=== PATIENT | female | born 1990 | race Caucasian/White ===

== ENCOUNTER 2016-07-17 20:20 | Inpatient (IN) | payer MEDICAID ==
[~2016-07-17] VITALS: Ht 142.2 cm; Wt 92.7 kg
[~2016-07-17 20:20] MED LIST: LACTATED RINGER'S 1,000 ML IV PRN; PREN-39 PO
[2016-07-17 20:41] VITALS: Ht 142.2 cm; Wt 92.7 kg
[2016-07-17 20:42] VITALS: BP 136/95; PULSE 80; RESP 18
--- NOTE | 2016-07-17 21:55 | PN ---
Date/Time of Note Date/Time of Note DATE: 07/17/16 TIME: 21:48 OB Subjective Subjective Subjective 26 yo P5105 @ 38 wks has been leaking on her underwear all day -good FM, some vaginal bleeding, mild ctx - h/o prior c/d x 2, x 3 OB Objective Objective Objective Abdomen- gravid,n/t SVE- 2/60/-3 FHT- Cat I [place]- irreg q 3 min Nitrazine neg, ROM+ neg, VIDHI 22 Abdomen: WNL Cervical Dilatation: 2cm Effacement: 50% Station: -3 Membranes: Intact Accelerations: Accelerations Present Decelerations: No Decelerations Varibility: Moderate Contractions on Admission: < 5 Minutes Apart Intensity: Mild OB Assessment/Plan Other Assessment: 26 yo P5105 @ 38 wks, r/o SROM, r/o labor - not SROM'd - patient does have ctx - will do BPP (FHT became less reactive) and recheck in 2 hrs ADWOA WHITE MD Jul 17, 2016 21:55
--- NOTE | 2016-07-17 21:58 | RADRPT ---
PROCEDURE: Ultrasound examination of . CLINICAL INDICATION: , now for evaluation of amnionic fluid index. TECHNIQUE: Ultrasound examination for evaluation of amnionic fluid index. COMPARISON: None. FINDINGS: VIDHI is 22.5 cm. heart motion is detected at a rate of 136 beats per minute. Placenta is posterior grade II. presentation is cephalic. IMPRESSION: VIDHI of 22.5 cm. RPTAT: UU Physician Douglas Date Time Electronically viewed and signed by Physician Douglas on 07/17/2016 21:57 RS/
--- NOTE | 2016-07-17 22:51 | RADRPT ---
PROCEDURE: US biophysical profile. CLINICAL INDICATION: Contractions. well-being. TECHNIQUE: Multiple sonographic images of the uterus were obtained. The images were revi ewed on a PACS workstation. COMPARISON: 07/17/2016. FINDINGS: There is a single live intrauterine gestation. heart rate is 120 beats per minute. The position is cephalic. The placenta is fundal, grade II. The VIDHI is 24.9 cm (normal: 5 - 25 cm). Breathing Movement: 2 Gross Body Movement: 2 Tone: 2 Qualitative Amniotic Fluid Volume: 2 TOTAL: 8 IMPRESSION: 1. Single viable intrauterine gestation. 2. Biophysical profile = 02/17. 3. VIDHI = 24.9 cm, which is upper limits of normal. RPTAT: HFN .Saurabh iCd MD, MD Date Time Electronically viewed and signed by .Saurabh Cid MD, MD on 07/17/2016 22:50 .N/
[2016-07-17] MEDS ORDERED: BUTORPHANOL 2 MG INJ IV PRN ×2 (23:00)
[2016-07-17] MEDS ORDERED: ACETAMINOPHEN/CODEINE #3 TAB PO PRN (23:00)
[2016-07-17] MEDS ORDERED: MISOPROSTOL 200 MCG TAB PR PRN (23:00)
[2016-07-17] MEDS ORDERED: IBUPROFEN 600 MG TAB PO PRN (23:00)
[2016-07-17] MEDS ORDERED: OXYTOCIN 30 UNITS/LR 500 ML IV PRN (23:00)
[2016-07-17] MEDS ORDERED: METHYLERGONOVINE 0.2 MG INJ IM PRN (23:00)
[2016-07-17] MEDS ORDERED: LIDOCAINE 1% (MPF) 30 ML INJ INJ PRN (23:00)
[2016-07-17] MEDS ORDERED: CARBOPROST 250 MCG INJ IM PRN (23:00)
[2016-07-17] MEDS ORDERED: OXYTOCIN 30 UNITS/LR 500 ML IV SCH (23:00)
[2016-07-18] MEDS ORDERED: AMPICILLIN 2 GM/NS (PMX) 100 ML IV ONE (01:00)
--- NOTE | 2016-07-18 01:15 | RADRPT ---
PROCEDURE: US OB. CLINICAL INDICATION: and labor. TECHNIQUE: Multiple sonographic images of the pelvis were obtained. The images were reviewed on a PACS workstation. COMPARISON: No prior studies are available for comparison. FINDINGS: There is a single viable intrauterine gestation. Cardiac activity is present with 139 beats per min [place]. There is a cephalic presentation. Measurements were made in order to determine age. The results are as follows: BPD =9.64 cm HC =34.60 cm AC =35.55 cm FL =7.43 cm. Estimated gestational age of approximately 39 weeks and 2 days.. The estimated date of delivery is 07/23/2016. The EFW = 3720 g . The placenta is posterior grade II.. There is no evidence for an abruption or placenta previa. There are no adnexal masses.. IMPRESSION: Single live intrauterine gestation of approximately 39 weeks and 2 days. The estimated date of deli very is 07/23/2016. RPTAT: UU Physician Douglas Date Time Electronically viewed and signed by Physician Douglas on 07/18/2016 01:14 RS/
[2016-07-18] MEDS: LACTATED RINGER'S 1,000 ML IV SCH ×3 (01:36→14:53)
[2016-07-18 01:55] LABS: BASOPHILS % 0.5 % (0.0-2.0); EOSINOPHILS # 0.3 10^3/ul (0.0-0.5); EOSINOPHILS % 2.6 % (0.0-7.0); HEMATOCRIT 41.6 % (37.0-47.0); HEMOGLOBIN 14.1 g/dl (12.0-16.0); LYMPHOCYTES # 2.5 10^3/ul (0.8-2.9); LYMPHOCYTES % 25.4 % (15.0-51.0); MEAN CORPUSCULAR HEMOGLOBIN 33.4 pg (29.0-33.0); MEAN CORPUSCULAR VOLUME 98.1 fl (82.0-101.0); MEAN PLATELET VOLUME 10.2 fl (7.4-10.4); MONOCYTE # 0.6 10^3/ul (0.3-0.9); MONOCYTES % 6.3 % (0.0-11.0); NEUTROPHIL # 6.4 10^3/ul (1.6-7.5); NEUTROPHILS % 65.2 % (39.0-77.0); PLATELET COUNT 146 10^3/UL (140-440); RED BLOOD COUNT 4.24 10^6/ul (4.20-5.40); RED CELL DISTRIBUTION WIDTH 13.3 % (11.5-14.5); UNCORRECTED WBC 9.8 10^3/ul (4.8-10.8); WHITE BLOOD COUNT 9.8 10^3/ul (4.8-10.8)
[2016-07-18 02:05] LABS: INR 0.88; PROTIME 11.9 Sec (12.2-14.2); PT RATIO 0.9
[2016-07-18 02:06] LABS: PARTIAL THROMBOPLASTIN TIME 26.1 Sec (25.0-35.0)
--- NOTE | 2016-07-18 02:25 | TRIAGE ---
OB Triage Datetime Report Generated by CPN: 07/18/2016 02:24 Datetime: 07/18/2016 01:36 Stage of : OB Triage Datetime: 07/18/2016 01:30 Labor Evaluation Frequency: 2-3 Monitor Mode: External Duration (sec)2399: 40-80 Quality: Mild Pattern: Normal: <= 5 Contractions in 10 Minutes Resting Tone [place]: Relaxed Heart Rate FHR Baseline Rate: 135 Monitor Mode: External US FHR Baseline Changes: No Baseline Change Variability: Moderate 6-25 bpm Accelerations: 15X15 Decelerations: None Category: Category I Datetime: 07/18/2016 01:06 Vaginal Exam Dilatation (cms): 4.0 Effacement (%): 50 Station: -3 Exam By: Evette HAIR RN Vaginal Bleeding: None Cervix, Consistency: Firm Cervix, Position: Anterior Presentation 'A': Cephalic Datetime: 07/18/2016 00:15 Stage of : OB Triage Labor Evaluation Frequency: 3-8 Monitor Mode: External Quality: Mild Pattern: Normal: <= 5 Contractions in 10 Minutes Resting Tone [place]: Relaxed Heart Rate FHR Baseline Rate: 125 Monitor Mode: External US FHR Baseline Changes: No Baseline Change Variability: Moderate 6-25 bpm Accelerations: 15X15 Decelerations: None Category: Category I Datetime: 07/17/2016 23:30 Stage of : OB Triage Labor Evaluation Frequency: IRREGULAR Monitor Mode: External Duration (sec)2399: 30-60 Quality: Mild Pattern: Normal: <= 5 Contractions in 10 Minutes Resting Tone [place]: Relaxed Heart Rate FHR Baseline Rate: 125 Monitor Mode: External US FHR Baseline Changes: No Baseline Change Variability: Moderate 6-25 bpm Accelerations: 15X15 Decelerations: None Category: Category I Datetime: 07/17/2016 22:54 Stage of : OB Triage Datetime: 07/17/2016 22:46 Vaginal Exam Dilatation (cms): 3.0 Effacement (%): 60 Station: -3 Exam By: Evette HAIR RN Vaginal Bleeding: None Cervix, Consistency: Firm Cervix, Position: Anterior Datetime: 07/17/2016 22:30 Stage of : OB Triage Labor Evaluation Frequency: IRREGULAR Monitor Mode: External Duration (sec)2399: 30-60 Quality: Mild Pattern: Normal: <= 5 Contractions in 10 Minutes Resting Tone [place]: Relaxed Heart Rate FHR Baseline Rate: 135 Monitor Mode: External US FHR Baseline Changes: No Baseline Change Variability: Moderate 6-25 bpm Accelerations: 15X15 Decelerations: None Category: Category I Datetime: 07/17/2016 22:07 Labor Evaluation Frequency: IRREGULAR Monitor Mode: External Duration (sec)2399: 50-60 Quality: Mild Pattern: Normal: <= 5 Contractions in 10 Minutes Resting Tone [place]: Relaxed Heart Rate FHR Baseline Rate: 135 Monitor Mode: External US FHR Baseline Changes: No Baseline Change Variability: Moderate 6-25 bpm Accelerations: 15X15 Decelerations: None Category: Category I Datetime: 07/17/2016 21:30 Labor Evaluation Frequency: IRREGULAR Monitor Mode: External Duration (sec)2399: 30-60 Quality: Mild Pattern: Normal: <= 5 Contractions in 10 Minutes Resting Tone [place]: Relaxed Heart Rate FHR Baseline Rate: 125 Monitor Mode: External US FHR Baseline Changes: No Baseline Change Variability: Moderate 6-25 bpm Accelerations: 15X15 Decelerations: None Category: Category I Datetime: 07/17/2016 20:55 Stage of : OB Triage Vaginal Exam Dilatation (cms): 2.0 Effacement (%): 60 Station: -3 Exam By: A LAXMI RN Vaginal Bleeding: None Pool: Negative Nitrazine: Negative Cervix, Consistency: Firm Cervix, Position: Anterior Presentation 'A': Cephalic Datetime: 07/17/2016 20:35 Stage of : OB Triage Assessment Type: Triage Time of Arrival: 07/17/2016 20:35 EGA: 38.0 Arrived By: Wheelchair Arrived From: Home Chief Complaint: C/O LEAKING AND BLEEDING SINCE THIS AM Movement: Present Contractions: Denies/Absent Rupture of Membranes: Unsure Vaginal Bleeding: None Vaginal Discharge: Present Recent Sexual Intercouse: Denies Patient Complaints: None Time Provider Notified: 07/17/2016 21:03 Provider Notified: DR DICKENS Initial Plan: CALL EFM Maternal Assessment Level of Consciousness: Fully Conscious DTR's/Clonus: DTRs 2+; No Clonus Headache: Denies Blurred Vision: No Respiratory Effort: Unlabored; Regular Rhythm; Equal Expansion Breath Sounds, Left: Clear and Equal Breath Sounds, Right: Clear and Equal Nausea/Vomiting: Denies RUQ Epigastric Pain: Denies Lower Extremities Edema: None Degree: None Upper Extremities Edema: None Degree: None Facial Edema: None Temperature Route: Oral Fall Risk Assessment History of Falling: (0) No Secondary Diagnosis: (0) No Ambulatory Aid: (0) Bedrest/Nurse Assist IV Therapy: (0) No Gait: (0) Normal/Bedrest/Immobile Mental Status: (0) Oriented to Own Ability Fall Score: 0 Fall Risk Score Definition: No Risk: No action required Monitor Mode: External Monitor Mode: External US Pain Assessment Pain Scale: 0 Vaginal Bleeding: None
[2016-07-18 03:00] LABS: CONDITION 1
--- NOTE | 2016-07-18 06:22 | HP ---
Date/Time of Note Date/Time of Note DATE: 07/18/16 TIME: 06:10 OB - History Hx of Present Free Text/Dictation 26 yo P5105 @38 wks presents in early labor, made cervical change in triage from 2-4 cm Good FM, VB, LOF, but all tests neg for ROM Last Menstrual Period: Sep 27, 2015 Estimated Due Date: Jul 31, 2016 : 7 Para: 5 Spontaneous : 1 Therapeutic : 0 Care: Limited Care Obstetrical Complications: None Medical Complications: None Other Concerns: prior c/d x 2, w x 3 Past Family/Social History * Past Medical, Surgical, Family and Obstetric Histories reviewed from chart. Blood Type: A+ Rubella: immune RPR/VDRL: Negative HBsAG: Negative OB Admission Exam Vital Signs Vital Signs Vital Signs Date Time Temp Pulse Resp B/P Pulse Ox O2 Delivery O2 Flow Rate FiO2 07/17/16 20:42 98.2 80 18 136/95 Room Air Physical Exam Abdomen: WNL Extremities: Normal Cervical Dilatation: 4cm Effacement: 50% Station: -2 Membranes: Intact Accelerations: Accelerations Present Decelerations: No Decelerations Varibility: Moderate Contractions on Admission: < 5 Minutes Apart Intensity: Moderate Last 72 hours Lab Results CBC & BMP 07/18/16 01:36 OB Assessment/Plan Other Assessment: 26 yo P5105@ 38 wks, in early labor -reassuring status Other plan: Admit Anticipate ADWOA WHITE MD Jul 18, 2016 06:21
[2016-07-18] MEDS: AMPICILLIN 1 GM/NS (PMX) 50 ML IV SCH ×3 (06:58→13:00)
[2016-07-18] MEDS ORDERED: MINERAL OIL LIGHT 10 ML VIAL TOP ONE (15:00)
[2016-07-18] MEDS: OXYTOCIN 30 UNITS/LR 500 ML IV SCH ×2 (17:22→19:24)
--- NOTE | 2016-07-18 17:22 | LDN ---
Date/Time of Note Date/Time of Note DATE: 07/18/16 TIME: 17:20 Delivery Summary of a viable infant over intact perineum Placenta Delivered: Spontaneously, Intact & Complete Meconium: none Perineum intact?: Yes Anesthesia type: None Estimated blood loss: 300 Sponge & Needle done & correct: Yes All needle counts correct: Yes Any foreign bodies felt in the: No Problems: Infant Delivery Information Sex Infant Sex: male Apgars 1 Minute: 9 5 Minute: 9 Suctioning Nose & mouth suctioned at anna: Yes Delee suction performed: No Umbilical Cord Umbilical cord with: 3 Vessels Cord presentations: no nuchal cord Cord Blood was obtained: Yes Mother & Baby Disposition Disposition mother and baby were recovered in good condition Mom & Baby to Maternity; Good: Yes Mom transferred to: Other (maternity ) Baby to NICU: No ROBIN MEDINA MD Jul 18, 2016 17:22
--- NOTE | 2016-07-18 19:14 | DELSUM ---
Delivery Summary A-C Datetime Report Generated by CPN: 07/18/2016 19:14 DELIVERY PERSONNEL Spider Assembler: Mahendra, Shahrzad MATERNAL INFORMATION Delivery Anesthesia: None Medications in Delivery: OXYTOCIN Estimated Blood Loss (ml): 300 Placenta Cultured: No Maternal Complications: Other Other Maternal Complications: Previous C/S x2 and x3 Still born at 20 weeks LABOR SUMMARY EDC: 07/31/2016 00:00 No. Babies in Womb: 1 Attempted: Yes Labor Anesthesia: None LABOR INFORMATION Reason for Induction: Not Applicable Complete Dilatation: 07/18/2016 16:56 Oxytocin: N/A Group B Beta Strep: Negative Antibiotics # of Doses: Ampicillin x3 Antibiotics Time of Last Dose: 1054 Steroids Given: None Reason Steroids Not Administered: Not Applicable MEMBRANES Membranes Rupture Method: Artificial Rupture of Membranes: 07/18/2016 14:04 Length of Rupture (hr): 3.10 Amniotic Fluid Color: Clear Amniotic Fluid Amount: Moderate Amniotic Fluid Odor: Normal STAGES OF LABOR Stage 2 hr: 0 Stage 2 min: 14 Stage 3 hr: 0 Stage 3 min: 0 VAGINAL DELIVERY Episiotomy: None Laceration Extension: N/A Laceration Type: None Laceration Repair: Not Applicable Initial Vag Sponge Count: 20 Final Vag Sponge Count: 20 Initial Vag Sharps Count: 1 Final Vag Sharps Count: 1 Sponge Count Correct: Yes Sharps Count Correct: Yes BABY A INFORMATION Infant Delivery Date/Time: 07/18/2016 17:10 Method of Delivery: Vaginal Born in Route : No : Successful Forceps: N/A Vacuum Extraction: N/A Shoulder Dystocia : N/A SHOULDER DYSTOCIA BABY A Infant Delivery Date/Time: 07/18/2016 17:10 PRESENTATION/POSITION BABY A Presentation: Cephalic Presentation: Cephalic Cephalic Presentation: Vertex Vertex Position: Left Occipital Posterior Breech Presentation: N/A PLACENTA INFORMATION BABY A Placenta Delivery Time : 07/18/2016 17:10 Placenta Method of Delivery: Spontaneous Placenta Status: Delivered SCORES BABY A Heart Rate 1 min: >100 bpm Resp Effort 1 min: Good Cry Reflex Irritability 1 min: Cough/Sneeze/Pulls Away Muscle Tone 1 min: Active Motion Color 1 min: Body [place], Extremit Blue Resuscitation Effort 1 min: Tactile Stimulation SCORE 1 MIN: 9 Heart Rate 5 min: >100 bpm Resp Effort 5 min: Good Cry Reflex Irritability 5 min: Cough/Sneeze/Pulls Away Muscle Tone 5 min: Active Motion Color 5 min: Body [place], Extremit Blue Resuscitation Effort 5 min: Tactile Stimulation SCORE 5 MIN: 9 INFORMATION BABY A Gestational Age at Delivery: 38.1 Gestational Status: Early Term- 37- 38.6 Weeks Infant Outcome : Liveborn Infant Condition : Stable Sex: Male IDENTIFICATION/MEDS BABY A ID Band Number: [id number] ID Band Location: Right Leg; Left Arm Sensor Applied: Yes Sensor Number: [id number] Sensor Location : Cord Clamp Vitamin K Given : Not Given Erythromycin Given: Not Given WEIGHT/LENGTH BABY A Infant Birthweight (gm): 3540 Infant Weight (lb): 7 Weight (oz): 13 Infant Length (in): 20.00 Length (cm): 50.80 CORD INFORMATION BABY A No. Cord Vessels: 3 Nuchal Cord : N/A Cord Blood Taken: Yes Suction: Mouth; Nose ASSESSMENT BABY A Infant Complications: None Physical Findings at Delivery: Within Normal Limits Respirations: Appears Normal Life Skills Coordinator Volunteer/ALS Called : No Care By: Bailee VIZCARRA Transferred To: Remains with Mother
--- NOTE | 2016-07-18 19:14 | OPRPT ---
Intraop Record Datetime Report Generated by CPN: 07/18/2016 19:14 Datetime: 07/17/2016 20:44 Drug Allergies/Reactions: No Known Allergy (07/17/2016) Datetime: 06/27/2016 15:33 Drug Allergies/Reactions: No Known Allergy (03/26/2014)
[2016-07-18 20:10] VITALS: BP 86/49; PULSE 77; RESP 18
--- NOTE | 2016-07-18 20:24 | OPRPT ---
Intraop Record Datetime Report Generated by CPN: 07/18/2016 20:23 Datetime: 07/18/2016 20:07 Drug Allergies/Reactions: No Known Allergy (07/18/2016)
[2016-07-18] MEDS ORDERED: ZOLPIDEM 5 MG TAB PO PRN (20:30)
[2016-07-18] MEDS ORDERED: BENZOCAINE 20% 56 ML SPRAY TOP PRN (20:30)
[2016-07-18] MEDS ORDERED: ACETAMINOPHEN/CODEINE #3 TAB PO PRN ×2 (20:30)
[2016-07-18] MEDS ORDERED: MISOPROSTOL 200 MCG TAB PR PRN (20:30)
[2016-07-18] MEDS ORDERED: WITCH HAZEL/GLYCERIN PAD PR PRN (20:30)
[2016-07-18] MEDS ORDERED: LANOLIN 7 GM TUBE TOP PRN (20:30)
[2016-07-18] MEDS ORDERED: CARBOPROST 250 MCG INJ IM PRN (20:30)
[2016-07-18] MEDS ORDERED: OXYTOCIN 30 UNITS/LR 500 ML IV PRN (20:30)
[2016-07-18] MEDS ORDERED: METHYLERGONOVINE 0.2 MG INJ IM PRN (20:30)
[2016-07-18] MEDS ORDERED: DIBUCAINE 1% 30 GM OINT PR PRN (20:30)
[2016-07-18] MEDS: MAGNESIUM HYDROXIDE 30ML CUP PO SCH (20:46)
[2016-07-18] MEDS: SENNA/DOCUSATE NA (8.6MG/50MG) TAB PO SCH (20:46)
[2016-07-19] MEDS: IBUPROFEN 600 MG TAB PO SCH ×5 (00:10→23:43)
[2016-07-19 04:00] VITALS: BP 104/61; PULSE 64; RESP 18
[2016-07-19] MEDS: LACTATED RINGER'S 1,000 ML IV* SCH ×2 (05:26→12:19)
[2016-07-19 07:05] LABS: BASOPHILS % 0.4 % (0.0-2.0); EOSINOPHILS # 0.4 10^3/ul (0.0-0.5); EOSINOPHILS % 3.7 % (0.0-7.0); HEMATOCRIT 32.8 % (37.0-47.0); HEMOGLOBIN 11.6 g/dl (12.0-16.0); LYMPHOCYTES # 2.7 10^3/ul (0.8-2.9); LYMPHOCYTES % 25.8 % (15.0-51.0); MEAN CORPUSCULAR HEMOGLOBIN 34.6 pg (29.0-33.0); MEAN CORPUSCULAR HGB CONC 35.4 g/dl (32.0-37.0); MEAN CORPUSCULAR VOLUME 97.7 fl (82.0-101.0); MEAN PLATELET VOLUME 10.4 fl (7.4-10.4); MONOCYTE # 0.7 10^3/ul (0.3-0.9); MONOCYTES % 6.6 % (0.0-11.0); NEUTROPHIL # 6.6 10^3/ul (1.6-7.5); NEUTROPHILS % 63.5 % (39.0-77.0); PLATELET COUNT 121 10^3/UL (140-440); RED BLOOD COUNT 3.35 10^6/ul (4.20-5.40); RED CELL DISTRIBUTION WIDTH 12.9 % (11.5-14.5); UNCORRECTED WBC 10.4 10^3/ul (4.8-10.8); WHITE BLOOD COUNT 10.4 10^3/ul (4.8-10.8)
[2016-07-19 07:07] LABS: CONDITION 1
[2016-07-19 09:18] VITALS: BP 108/71; PULSE 76; RESP 18
[2016-07-19] MEDS: MAGNESIUM HYDROXIDE 30ML CUP PO SCH ×2 (09:18→21:15)
[2016-07-19] MEDS: SENNA/DOCUSATE NA (8.6MG/50MG) TAB PO SCH ×2 (09:18→21:15)
[2016-07-19 11:49] VITALS: BP 108/64; PULSE 82; RESP 18
[2016-07-19 16:25] VITALS: BP 97/59; PULSE 77; RESP 16
[2016-07-19 19:50] VITALS: BP 95/45; PULSE 83; RESP 18
--- NOTE | 2016-07-19 20:02 | DS ---
Date/Time of Note Date/Time of Note home next day DATE: 07/19/16 TIME: 20:00 Obstetrical Discharge Record Final Diagnosis Final Diagnosis: Term delivered Other Final Diagnosis S/P Vaginal Delivery Obstetrical Delivery: Spontaneous, Successful Condition on Discharge Physical Assessment Last Vitals: see nurses notes Voiding: Yes Bowel Movement: Yes Breast: Soft, non-tender, Filling Fundus: Firm Abdomen and Incision: soft bs + Episiotomy: NA Calf Tenderness: No Patient Condition: Good ROBIN MEDINA MD Jul 19, 2016 20:01
--- NOTE | 2016-07-19 20:03 | PD.PPDC ---
DOOR SLINGER Discharge Instruction Provider Information Physician Information 26 y/o female had vaginal delivery Diagnosis Final Diagnosis: S/P vaginal delivery Condition Patient Condition: Good Diet Diet: Resume Regular Diet Activity/Restrictions Activity: Normal Activity May Shower Restrictions: Nothing in the Vagina Return to Work or School: Sep 01, 2016 Follow-up Follow-up with Physician: 4, Week/Weeks Provider Information: in clinic Return to clinic for SEED PELLETER Instructions: Excessive Vaginal Bleeding OB Instructions: Breast Tenderness Depression ROBIN MEDINA MD Jul 19, 2016 20:03
[2016-07-19] MEDS ORDERED: IBUP-1542 PO (20:04)
[2016-07-20 04:25] VITALS: BP 96/58; PULSE 84; RESP 18
[2016-07-20] MEDS: IBUPROFEN 600 MG TAB PO SCH ×2 (06:01→11:48)
[2016-07-20 07:45] VITALS: BP 101/59; PULSE 91; RESP 18
[2016-07-20] MEDS ORDERED: DIPHTH/TET/ACEL PERTUSS (ADULT) 0.5 ML VIAL IM* ONE (09:00)
[2016-07-20] MEDS ORDERED: VARICELLA VACCINE LIVE/PF 1,350 UNIT/0.5 ML ML SC* ONE (09:00)
[2016-07-20] MEDS ORDERED: MEASLES,MUMPS,RUBELLA VACCINE INJ SC* ONE (09:00)
[2016-07-20] MEDS: SENNA/DOCUSATE NA (8.6MG/50MG) TAB PO SCH (09:00)
[2016-07-20] MEDS: MAGNESIUM HYDROXIDE 30ML CUP PO SCH (09:00)
== END 2016-07-20 15:27 | disposition home or self-care (01) | DRG 775 ==
LOC: OBT 20:20 → L-D 20:21 → OBT 07-18 01:18 → PP1 07-18 20:10
PROVIDERS: ADMIT Obstetrics & Gynecology; ATTEND Obstetrics & Gynecology
PROC: 10E0XZZ Delivery of Products of Conception, External Approach (ICD-10-PCS; principal; 2016-07-18)
PROC: 10907ZC Drainage of Amniotic Fluid, Therapeutic from Products of Conception, Via Natural or Artificial Opening (ICD-10-PCS; 2016-07-18)
DX: O34.211 Maternal care for low transverse scar from previous cesarean delivery (principal); Z37.0 Single live birth; Z3A.38 38 weeks gestation of pregnancy
CPT/HCPCS: 36415; 76815; 76818; 84112; 85025; 85610; 85730; 86592; 86900; 86901; 90715; 90716; G0463; J0290; J2590; J7120

== ENCOUNTER 2016-09-29 00:21 | Emergency (ER) | END 2016-09-29 05:55 | disposition home or self-care (01) | DX: N93.9 Abnormal uterine and vaginal bleeding, unspecified (principal); R10.2 Pelvic and perineal pain | CPT/HCPCS: 76856; 80053; 81001; 81003; 84702; 85025; 86850; 86900; 86901; J7030 ==

== ENCOUNTER 2017-09-10 21:46 | Emergency (ER) | END 2017-09-11 03:00 | disposition home or self-care (01) ==